=== PATIENT | female | born 1990 | race Caucasian/White ===

== ENCOUNTER 2017-10-13 16:07 | Emergency (ER) | payer OTHER ==
[~2017-10-13] VITALS: Ht 157.5 cm; Wt 88.5 kg
[2017-10-13 16:13] VITALS: BP 119/66
[2017-10-13 18:11] LABS: BILIRUBIN,URINE NEGATIVE (NEGATIVE); BLOOD, URINE NEGATIVE (NEGATIVE); LEUKOCYTE ESTERASE ,URINE NEGATIVE (NEGATIVE); NITRITE, URINE NEGATIVE (NEGATIVE); UGLUCOSE NEGATIVE (NEGATIVE)
[2017-10-13 18:16] LABS: APPEARANCE,URINE CLEAR (CLEAR); COLOR,URINE YELLOW (YELLOW)
[2017-10-13 18:39] VITALS: BP 118/60
== END 2017-10-13 18:39 | disposition home or self-care (01) ==
LOC: MED 16:07
DX: K59.00 Constipation, unspecified (principal); R11.10 Vomiting, unspecified
CPT/HCPCS: 74018; 81003; 81025; 99285